=== PATIENT | female | born 1995 | race Hispanic/Latino ===

== ENCOUNTER 2018-01-30 08:01 | Emergency (ER) | payer SELFPAY ==
[2018-01-30] MEDS ORDERED: ONDANSETRON HCL 4 MG/2 ML VIAL ONE (09:13)
[2018-01-30] MEDS ORDERED: SODIUM CHLORIDE 0.9% 1000ML 1,000 ML IV ONE (09:13)
[2018-01-30] MEDS ORDERED: MORPHINE SULFATE 8 MG/ML VIAL ONE (09:14)
[2018-01-30 09:20] LABS: BASOPHILS % (AUTO) 1.2 % (0.0-5.0); EOSINOPHILS % (AUTO) 0.1 % (0.0-8.0); HEMATOCRIT 47.4 % (36-48); LYMPHOCYTES % (AUTO) 6.1 % (21.0-51.0); MEAN CORPUSCULAR HGB CONC 33.9 g/dL (32.0-36.0); MEAN CORPUSCULAR VOLUME 88.5 fL (79-99); MONOCYTES % (AUTO) 2.2 % (3.0-13.0); NEUTROPHILS % (AUTO) 90.4 % (40.0-77.0); NUCLEATED RED BLOOD CELLS 0.1 % (0.0-0.19); PLATELET COUNT (AUTO) 295 K/uL (130-400); RED BLOOD CELL COUNT(AUTO) 5.36 MIL/uL (4.00-5.50); WHITE BLOOD COUNT (AUTO) 25.1 K/uL (4.8-10.8)
[2018-01-30 09:23] LABS: APPEARANCE,URINE CLOUDY (CLEAR); BILIRUBIN,URINE SMALL (NEGATIVE); COLOR,URINE BROWN (YELLOW); GLUCOSE, URINE (UA) NEGATIVE (NEGATIVE); KETONES,URINE 5 mg/dL (NEGATIVE); LEUKOCYTE ESTERASE ,URINE TRACE (NEGATIVE); NITRATE,URINE NEGATIVE (NEGATIVE); OCCULT BLOOD,URINE SMALL (NEGATIVE); PROTEIN,URINE 100 (NEGATIVE)
[2018-01-30 09:31] LABS: HCG,QUAL RESULT NEGATIVE (NEGATIVE)
[2018-01-30 09:35] LABS: MUCUS,URINE Moderate LPF (None Seen); SQUAMOUS EPITHELIAL CELL,UR Moderate /HPF (0-2)
[2018-01-30 09:36] LABS: BACTERIA,URINE Moderate /HPF (None Seen); RBC,URINE 0-1 /HPF (0-1); WBC,URINE 0-1 /HPF (0-1)
[2018-01-30 09:44] LABS: ALBUMIN 5.2 g/dL (3.5-5.0); BILIRUBIN,TOTAL 0.5 mg/dL (0.2-1.0); CREATININE 0.9 mg/dL (0.5-1.5); TOTAL PROTEIN, SERUM 9.3 g/dL (6.0-8.3)
[2018-01-30 09:59] LABS: POTASSIUM 3.8 mmol/L (3.5-5.1)
== END 2018-01-30 11:29 | disposition home or self-care (01) ==
LOC: EDH 08:01
DX: K52.9 Noninfective gastroenteritis and colitis, unspecified (principal)
CPT/HCPCS: 36415; 74176; 80053; 81001; 81025; 83690; 85025; 96361; 96374; 96375; 99285; J2270; J2405; J7030

== ENCOUNTER 2024-08-26 00:51 | Emergency (ER) | payer SELFPAY ==
[~2024-08-26] VITALS: Ht 149.9 cm; Wt 51.7 kg
[2024-08-26 01:18] LABS: BASOPHILS # (AUTO) 0.08 K/uL (0.00-0.20); BASOPHILS % (AUTO) 0.3 % (0.0-5.0); EOSINOPHILS # (AUTO) 0.08 K/uL (0.00-0.70); EOSINOPHILS % (AUTO) 0.3 % (0.0-8.0); IMMATURE GRANULOCYTE ABSOLUTE 0.16 K/uL (0-1); LYMPHOCYTES % (AUTO) 15.2 % (21.0-51.0); MEAN CORPUSCULAR HEMOGLOBIN 31.4 pg (27.0-33.0); MEAN CORPUSCULAR HGB CONC 37.9 g/dL (32.0-36.0); MONOCYTES # (AUTO) 1.2 K/uL (0.1-1.0); MONOCYTES % (AUTO) 4.6 % (3.0-13.0); NEUTROPHILS # (AUTO) 20.8 K/uL (1.8-7.7); PLATELET COUNT (AUTO) 333 K/uL (130-400); RED BLOOD CELL COUNT(AUTO) 5.06 MIL/uL (4.00-5.50); RED CELL DISTRIBUTION WIDTH 11.1 % (11.0-15.5); WHITE BLOOD COUNT (AUTO) 26.3 K/uL (4.8-10.8)
--- NOTE | 2024-08-26 01:18 | ERN ---
ED Note History of Present Illness Stated Complaint: N/V/D , ABD PAIN Chief Complaint: Abdominal Pain Time Seen by MD: 00:58 Dictation: This is a 29-year-old female who presented to the emergency room with sudden onset of acute diffuse abdominal pain and profuse nausea and vomitings. She also had loose watery stools. Apparently the whole family was at a restaurant and she ate musels and within 2 hours began experiencing symptoms. No hematemesis or melena. No blood in the emesis or in her watery stool. She was actively vomitings during my evaluation. Temperature 99.3 pulse 111 respiratory rate 20 blood pressure 122/91 with a pulse oximetry of 98% on room air Allergies: Coded Allergies: No Known Drug Allergies (Verified Allergy, Unknown, 08/04/13) Past Medical History Past Medical History: No Pertinent History Surgical History: None Family History: Negative Social History: Negative RN Note Reviewed/Agreed w/PFSH: Yes Review of System Dictation Constitutional: Negative for fever,chills, and weight loss Eyes: Negative for injury, pain,redness, and discharge ENT: Negative for injury,pain or swelling Cardiovascular: Negative for chest pain, palpitations, and edema Respiratory: Negative for shortness of breath, cough, and wheezing, Abdomen/GI: Positive for abdominal pain, nausea, vomiting, diarrhea, Back: Negative for injury and pain : Negative for injury, bleeding and discharge MS/Extremity: Negative for injury and deformity Skin: Negative for rash, and discoloration Neuro: Negative for headache, weakness, numbness, tingling, and seizure Psych: Negative for suicide ideation, homicidal ideation, and hallucinations Initial Vital Sign VS Vital Signs Date Time Temp Pulse Resp B/P (MAP) Pulse Ox O2 Delivery O2 Flow Rate FiO2 08/26/24 00:53 99.3 111 20 122/91 99 Room Air 08/26/24 01:20 0 21 Physical Exam Dictation General: awake, alert, NAD appears sick actively vomitings Head/Face: Normocephalic, atraumatic Eyes: PERRL, EOMI, vision at baseline ENT: oral cavity clear, TMs clear, no signs of infection Neck: Trachea midline, supple, no nuchal rigidity Cardiovascular: RRR, normal S1/S2, No MRGs, no JVD Respiratory: CTAB, no respiratory distress, No rales or wheezes Abdomen: Soft, non-tender, non-distended, normal bowel sounds, no guarding or rebound. Skin: Warm, dry, normal turgor, no rash MS/Extremity: Pulses equal, no cyanosis, neurovascular intact, FROM Neuro: COAx4, GCS 15, strength 5/5, CN 2-12 intact, normal cerebellar exam, normal gait, Psych: Normal behavior, mood, and affect normal Extremities-trace edema without any palpable cords, Homans sign is negative Results (Laboratory/Radiology) Laboratory/Radiology Laboratory Tests Test 08/26/24 01:10 08/26/24 03:29 White Blood Count 26.3 K/uL (4.8-10.8) H Red Blood Count 5.06 MIL/uL (4.00-5.50) Hemoglobin 15.9 g/dL (12.0-16.0) Hematocrit 42.0 % (36-48) Mean Corpuscular Volume 83.0 fL (79-99) Mean Corpuscular Hemoglobin 31.4 pg (27.0-33.0) Mean Corpuscular Hemoglobin Concent 37.9 g/dL (32.0-36.0) H Red Cell Distribution Width 11.1 % (11.0-15.5) Platelet Count 333 K/uL (130-400) Mean Platelet Volume 9.7 fL (7.5-10.5) Immature Granulocyte % (Auto) 0.6 % (0-1) Neutrophils (%) (Auto) 79.0 % (40.0-77.0) H Lymphocytes (%) (Auto) 15.2 % (21.0-51.0) L Monocytes (%) (Auto) 4.6 % (3.0-13.0) Eosinophils (%) (Auto) 0.3 % (0.0-8.0) Basophils (%) (Auto) 0.3 % (0.0-5.0) Neutrophils # (Auto) 20.8 K/uL (1.8-7.7) H Lymphocytes # (Auto) 4.0 K/uL (1.0-4.8) Monocytes # (Auto) 1.2 K/uL (0.1-1.0) H Eosinophils # (Auto) 0.08 K/uL (0.00-0.70) Basophils # (Auto) 0.08 K/uL (0.00-0.20) Absolute Immature Granulocyte (auto 0.16 K/uL (0-1) Nucleated Red Blood Cells 0.0 % (0.0-0.19) Red Blood Cell Morphology See comments Sodium Level 140 mmol/L (136-145) Potassium Level 3.5 mmol/L (3.5-5.1) Chloride Level 102 mmol/L (101-111) Carbon Dioxide Level 22 mmol/L (21-32) Blood Urea Nitrogen 17 mg/dL (7-18) Creatinine 0.8 mg/dL (0.5-1.0) Glomerular Filtration Rate Calc 101 mL/min (>90) Random Glucose 145 mg/dL (70-105) H Total Calcium 10.0 mg/dL (8.5-10.1) Lipase 55 U/L (16-77) Urine Color LIGHT-YELLOW (YELLOW) Urine Appearance CLEAR (CLEAR) Urine pH 7.0 (5.0-8.0) Urine Specific [place] 1.027 (1.001-1.031) Urine Protein NEGATIVE mg/dL (NEGATIVE) Urine Glucose (UA) NEGATIVE mg/dL (NEGATIVE) Urine Ketones 5 mg/dL (NEGATIVE) H Urine Occult Blood SMALL (NEGATIVE) H Urine Nitrate NEGATIVE (NEGATIVE) Urine Bilirubin NEGATIVE mg/dL (NEGATIVE) Urine Urobilinogen 0.2 mg/dL (0.2-1.0) Urine Leukocyte Esterase NEGATIVE Ludy/uL Urine RBC 6-10 /HPF (0-1) H Urine WBC 0-1 /HPF (0-1) Urine Squamous Epithelial Cells RARE /HPF (0-2) Urine Bacteria None /HPF (None Seen) Urine HCG, Qualitative NEGATIVE (NEGATIVE) Labs Reviewed?: Yes ED Course ED Course Orders Procedure Category Date Status Time Cbc With Differential LAB 08/26/24 Complete 01:03 ,Urine Test LAB 08/26/24 Complete 01:03 Urinalysis Profile LAB 08/26/24 Complete 01:03 0.9%Nacl 1000ml (Ns PHA 08/26/24 Complete 1000ml) 01:30 Morphine 2mg Syg PHA 08/26/24 Complete (Morphine 2mg Syg) 01:30 Ondansetron 4mg Inj PHA 08/26/24 Complete (Zofran 4mg Inj) 01:30 Lipase LAB 08/26/24 Complete 01:03 Basic Metabolic Panel LAB 08/26/24 Complete 01:03 0.9% Nacl 500ml PHA 08/26/24 Complete Iv.Soln (Ns 500ml 03:00 Doxycycline 100mg+Ns PHA 08/26/24 In Process 250ml (Doxycycline 03:00 Current Medications Medications (Trade) Dose Ordered Sig/Nils Route PRN Reason Start Time Stop Time Status Last Admin Dose Admin Doxycycline Hyclate 250 ml @ 125 mls/hr Q12H IV 08/26/24 03:00 09/05/24 02:59 08/26/24 03:20 Morphine Sulfate (morPHINE 2MG SYG) 2 mg ONCE ONCE IVP 08/26/24 01:30 08/26/24 01:31 DC 08/26/24 01:25 Ondansetron HCl (zoFRAN 4MG INJ) 4 mg ONCE ONCE IVP 08/26/24 01:30 08/26/24 01:31 DC 08/26/24 01:24 Sodium Chloride 500 ml @ 0 mls/hr ONCE ONCE IV 08/26/24 03:00 08/26/24 03:14 DC 08/26/24 03:20 Sodium Chloride 1,000 ml @ 0 mls/hr ONCE ONCE IV 08/26/24 01:30 08/26/24 01:31 DC 08/26/24 01:24 Vital Signs Date Time Temp Pulse Resp B/P (MAP) Pulse Ox O2 Delivery O2 Flow Rate FiO2 08/26/24 01:20 104 20 139/73 99 Room Air* 0 21 08/26/24 00:53 99.3 111 20 122/91 99 Room Air We will perform diagnostic labs, and administer medications according to the patient's complaint. Once the results are available, will review and personally interpreted the labs to rule out any acute life-threatening emergency the trach require immediate intervention and treatment. I will then re-evaluate the patient after treatment and diagnostic exams have return to determine whether the patient requires any further testing, can safely be discharged home or need further admission to hospital for additional treatment and evaluation. Labs reviewed CBC showed a white count of 26.3 BNP 7 significant for a potassium of 3.5 Aggressive hydration antiemetics. I suspect the leukocytosis is from demargination and severe vomitings. However I will give an empiric dose of doxycycline. 4:00 a.m.-feeling slightly improved we will give additional fluids 5:00 a.m. feeling significantly better tolerating p.o. liquids. We will discharge her to follow up with her PCP. Empiric antibiotics as outpatient. Medical Decision Making MDM MDM: Differential diagnosis: Norovirus, toxin induced diarrhea, gastroenteritis, food poisoning, vibrio vulnificus Rationale: Tests considered and ordered secondary to shared decision making include: Previous outside records reviewed: Old ER visits. Risk of complication and/or morbidity or mortality of patient management: None Medications-Per medication reconciliation Need for hospitalization: Patient does not meet criteria for hospitalization. Need for emergency major/minor surgery: No There are no social concerns with this patient. Prescription drug management Prescriptions will include symptomatic care Patient's prior external medical records from other ER visits were reviewed by me as indicated. Prior testing and results from previous visits were reviewed. Prior tests were taken into account with medical decision making and resource utilization, independent historian/historians were used to obtain complete medical history. I independently interpreted the test that were performed, results were reviewed by me and considered findings on radiology if ordered. Medical management and examination interpretation discussions were had by me with other qualified healthcare professionals as indicated for the patient's care. DX & DISP Disposition: Discharge Departure Impression: Primary Impression: Food poisoning Additional Impression: Nausea vomiting and diarrhea Condition: Stable Scripts Doxycycline Hyclate (Doxycycline Hyclate) 100 Mg Capsule 1 CAP PO BID for 7 Days, #14 CAP 0 Refills Prov: SARIAH KENT MD 08/26/24 Ondansetron (Ondansetron Odt) 4 Mg Tab.rapdis 4 MG PO Q6HPRN PRN for nausea, #16 TAB 0 Refills Prov: SARIAH KENT MD 08/26/24 Additional Instructions: Patient and the caregiver have been informed of all the diagnostic tests and the imaging conducted during the today's visit to the emergency room and has verbalized understanding of the results I have personally reviewed and interpreted all diagnostic exams performed here in the ER today as well as the vital signs documented by the nursing staff. The patient is now being discharged to home and should follow up with the primary care physician or the specialist as directed by the ER staff. Follow-up with primary care provider in 1 to 2 days. Take medications as directed here in the emergency room. Okay to continue home medications unless otherwise discussed during your visit in the emergency room today. Return to your nearest emergency room if symptoms worsen or if there is no improvement. Call 911 if you need immediate assistance. Take Tylenol or Motrin [id number] as needed and if no contraindications are present. Increase oral hydration. A wound culture or urine culture was ordered here in the emergency room department please follow-up with primary care provider and advise them to get repeat ports from our facility. If you had any Sylvester wrap/splints that were applied here, please do not remove them until you see your primary care or specialty. Referrals: CJ MORAN MD (PCP) SARIAH KENT MD Aug 26, 2024 01:18
[2024-08-26] MEDS: 0.9%NACL 1000ML 1,000 ML IV ONE (01:24)
[2024-08-26] MEDS: ondanSETRON 4MG INJ IVP ONE (01:24)
[2024-08-26] MEDS: morPHINE 2 MG SYG IVP ONE (01:25)
[2024-08-26 01:31] LABS: CREATININE 0.8 mg/dL (0.5-1.0); POTASSIUM 3.5 mmol/L (3.5-5.1)
[2024-08-26] MEDS: 0.9% NACL 500ML IV.SOLN 500 ML IV ONE (03:20)
[2024-08-26] MEDS: DOXYCYCLINE 100MG+NS 250ML 250 ML IV SCH (03:20)
[2024-08-26 03:47] LABS: ADD UA MICROSCOPIC YES; APPEARANCE,URINE CLEAR (CLEAR); BILIRUBIN,URINE NEGATIVE (NEGATIVE); COLOR,URINE LIGHT-YELLOW (YELLOW); GLUCOSE, URINE (UA) NEGATIVE (NEGATIVE); KETONES,URINE 5 mg/dL (NEGATIVE); LEUKOCYTE ESTERASE ,URINE NEGATIVE Leu/uL (NEGATIVE); NITRATE,URINE NEGATIVE (NEGATIVE); OCCULT BLOOD,URINE SMALL (NEGATIVE); PROTEIN,URINE NEGATIVE (NEGATIVE); UROBILINOGEN,URINE 0.2 mg/dL (0.2-1.0)
[2024-08-26 03:49] LABS: MUCUS,URINE RARE LPF (None Seen); SQUAMOUS EPITHELIAL CELL,UR RARE /HPF (0-2); WBC,URINE 0-1 /HPF (0-1)
[2024-08-26 03:51] LABS: HCG,QUALITATIVE URINE NEGATIVE (NEGATIVE)
[2024-08-26] MEDS ORDERED: DOXY100C5 PO (05:12)
[2024-08-26] MEDS ORDERED: ONDA-243 PO (05:12)
[2024-08-26 05:23] VITALS: BP 99/59; PULSE 82; RESP 20; TEMP 98.6; O2SAT 99
== END 2024-08-26 05:32 | disposition home or self-care (01) ==
LOC: EDH 00:51
DX: A05.9 Bacterial foodborne intoxication, unspecified (principal); R11.2 Nausea with vomiting, unspecified; R19.7 Diarrhea, unspecified
CPT/HCPCS: 99284; 96365; 96375; 96361; 80048; 83690; 85025; 81001; 81025; 36415; J7040; J2270; J7030; J2405; J3490